=== PATIENT | female | born 1995 | race Two or more races ===

== ENCOUNTER → 2024-02-04 | Outpatient (CLI) | payer MEDICAID, SELFPAY ==
--- NOTE | 2024-02-04 08:30 | XR_ITS ---
Examination: Pelvic ultrasound, transabdominal, complete Technique: Transabdominal ultrasound of the pelvis performed using grayscale imaging Date and time of exam: February 04, 2024 0829 hours INDICATIONS: Vaginal bleeding beginning 6 months ago with pelvic cramping FINDINGS: Uterus 7.6 x 3.9 x 6.6 cm Hyperechoic area in the cervix 15 x 7 mm Right ovary 3.2 x 2.0 x 2.3 cm arterial flow Left ovary 5.1 x 4.0 x 4.5 cm arterial flow 26 x 31 x 30 mm cyst IMPRESSION: Recommend transvaginal pelvic sonography follow-up to further assess linear hyperechoic area in the cervix 15 x 7 mm
== END | disposition home or self-care (01) ==
LOC: CDIM 08:06
PROVIDERS: Referring Provider Nurse Practitioner Family; Visit Provider Nurse Practitioner Family
DX: N92.6 Irregular menstruation, unspecified (principal)
CPT/HCPCS: 76856

== ENCOUNTER → 2024-03-03 | Outpatient (CLI) | payer MEDICAID, SELFPAY ==
--- NOTE | 2024-03-03 15:30 | XR_ITS ---
Examination: Transvaginal ultrasound of the pelvis, complete Technique: Transvaginal sonographic images pelvis performed using sanchez scale imaging Exam date and time: March 03, 2024 1553 hours INDICATIONS: Pelvic pain one month vaginal bleeding 7 months, hyperechoic area in the cervix 15 x 7 mm on transabdominal pelvic sonogram February 04, 2024 FINDINGS: Uterus 10.4 x 4.9 x 7.1 cm retroverted No uterine or cervical mass Endometrial stripe 0.6 cm Right ovary 2.5 x 1.0 x 2.9 cm arterial flow small follicles Left ovary 4.0 x 3.0 x 3.6 cm arterial flow 32 x 26 x 32 mm cyst IMPRESSION: No uterine or cervical mass noted.
== END | disposition home or self-care (01) ==
PROVIDERS: PCP Internal Medicine; Referring Provider Internal Medicine; Visit Provider Internal Medicine
DX: N92.6 Irregular menstruation, unspecified (principal)
CPT/HCPCS: 76830

== ENCOUNTER 2025-01-05 02:44 | Inpatient (IN) | payer MEDICAID, SELFPAY ==
[2025-01-05] VITALS (84 sets, daily range): BP systolic 93–118; BP diastolic 51–73; PULSE 69–113; RESP 16–99; TEMP 36.6–37.2; O2SAT 87–100; BMI 29.1
[2025-01-05 04:28] LABS: Basophils # (Auto) 0.1 Thou/mm3 (0.0-0.2); Basophils % (Auto) 1 % (0-2.5); Eosinophils # (Auto) 0.0 Thou/mm3 (0.0-0.5); Eosinophils % (Auto) 0 % (0-10); Hematocrit 32.4 % (36.0-46.0); Hemoglobin 10.3 g/dL (12.0-16.0); Immature Granulocytes Auto 0.07 Thou/mm3 (0.00-0.00); Lymphocytes # (Auto) 2.6 Thou/mm3 (1.0-4.8); Lymphocytes % (Auto) 25 % (10-50); Mean Corpuscular HGB Conc 31.8 g/dl (31.0-37.0); Mean Corpuscular Hemoglobin 22.7 pg (25.0-35.0); Mean Corpuscular Volume 72 fL (80-100); Monocytes # (Auto) 0.9 Thou/mm3 (0.0-0.8); Monocytes % (Auto) 8 % (0-12); Neutrophils # (Auto) 6.9 Thou/mm3 (1.8-7.7); Neutrophils % (Auto) 66 % (37-80); Nucleated Red Blood Cell # 0.00 Thou/mm3 (0.00-0.00); Nucleated Red Blood Cell % 0 /100 WBC (0); Platelet Count 204 Thou/mm3 (140-440); RDW Standard Deviation 44.8 fL (36.4-46.3); Red Blood Count 4.53 Miln/mm3 (4.00-5.20); White Blood Count 10.6 Thou/mm3 (3.6-11.0)
[2025-01-05] MEDS: RINGERS LACTATED 1000 ML 1,000 ML 100 ML IV (04:39)
[2025-01-05 04:52] LABS: Amphetamine/Metham Scrn,Ur OB Negative (Negative); Benzoylecgonine Screen, Ur OB Negative (Negative); Opiate Screen,Urine OB Negative (Negative); THC Screen,Urine OB Negative (Negative)
[2025-01-05 05:00] LABS: Syphilis Nonreactive (Nonreactive)
--- NOTE | 2025-01-05 06:03 | PD.LDHP ---
Documentation for date of: 01/05/25 OB Labor/Induct. HPI History of Present Illness : 8 Para: 5 Term pregnancies: 5 pregnancies: 0 Living children: 5 History of Abortions: Spontaneous and Elective: 2 History of Vaginal deliveries: 5 History of sections: No History of : No Date of last menstrual period: 04/12/24 EFREN: 01/17/25 Gestational age based on last menstrual period: 38 History of present illness: H and P dictated on STAT line #9 in [facility] : [id number] History of Present Adequate Care: Yes Labs Labs: Negative: RPR and Group Beta Strep and Unknown: Covid-19 Past Medical History Surgical History SURGICAL: Negative Section Meds Home Medications and Allergies Home Medications ?Medication ?Instructions ?Recorded ?Confirmed ?Type vits no.130-ferrous fum 1 tab PO QDAY 11/17/20 08/07/22 History 27 mg iron-folic acid 800 mcg tablet ( Vitamin) ferrous sulfate 325 mg (65 mg 325 mg PO QDAY 08/07/22 08/07/22 History iron) tablet Allergies Allergy/AdvReac Type Severity Reaction Status Date / Time No Known Allergies Allergy Unverified 08/07/22 07:20 OB Exam Physical Exam Vital signs: Temp Pulse Resp BP 98.9 F 87 18 118/73 01/05/25 03:00 01/05/25 03:00 01/05/25 03:00 01/05/25 03:00 OB Results Labs 01/05/25 03:31 Labs: Short CBC 01/05/25 Range/Units 03:31 WBC 10.6 (3.6-11.0) Thou/mm3 Hgb 10.3 L (12.0-16.0) g/dL Hct 32.4 L (36.0-46.0) % Plt Count 204 (140-440) Thou/mm3
--- NOTE | 2025-01-05 06:35 | ESHP_ITS ---
RE: BING KWAN : 1995 DATE OF ADMISSION: 01/17/2025 HISTORY OF PRESENT ILLNESS: This is a 29-year-old 8, para 5-0-2-5 with due date of 01/17 with intrauterine at 38 weeks and 2 days who presents to labor and delivery complaining of contractions and leaking and is noted to be in early labor. She denies any bleeding. She reports normal movement. Her care was complicated by a suspected ventricular septal defect on an early ultrasound; however, followup with maternal medicine with multiple visits failed to confirm any VSD. MFM indicated on 11/24 that growth was at the 85th percentile, consistent with a projected size at term of 9 pounds. Her care was also complicated by iron deficiency anemia. She has been taking iron during her . MEDICATIONS: 1. multivitamin 1 p.o. daily. 2. Ferrous sulfate 325 mg 1 p.o. b.i.d. SOCIAL HISTORY: She denies any alcohol, drug use, or smoking. FAMILY HISTORY: Diabetes. OBSTETRIC HISTORY: Five previous full-term normal vaginal deliveries and two first-trimester spontaneous abortions at 6 weeks gestation without D and C. PAST SURGICAL HISTORY: Denies. REVIEW OF SYSTEMS: She denies any chest pain, palpitations, cough, fever, flank pain, shortness of breath, or lower extremity pain. She denies any headache, change of vision, or right upper quadrant pain. PHYSICAL EXAMINATION: VITAL SIGNS: Blood pressure is 122/70, heart rate 88, respirations 18, temperature 98.6. HEENT: Oropharynx and sclerae clear. LUNGS: Clear to auscultation bilaterally. HEART: Regular rate and rhythm. ABDOMEN: Gravid, consistent with an estimated weight of 8.5 pounds. PELVIC: See RN notes. EXTREMITIES: Nontender. SKIN: No gross rashes or lesions. NEUROLOGIC: No focal deficits. ASSESSMENT AND PLAN: Intrauterine at 38 weeks and 2 days. Labor. Anticipate spontaneous vaginal delivery. Informed consent was obtained. Patient has been made aware of the risks, complications, alternatives, and benefits of operative vaginal delivery and delivery and agrees with these modes of delivery if indicated. DT: 06:02:41 TT: 06:34:00 Ref: [id number] - TID: [id number]
[2025-01-05] MEDS: OXYTOCIN in NS 30 units 30 UNIT/500 ML BAG IV (09:00)
[2025-01-05] MEDS: MINERAL OIL 30 ML UDC TOP (14:16)
[2025-01-05] MEDS: OXYTOCIN in NS 20 units 20 UNIT/1,000 ML BAG 125 UNIT IV (14:16)
[2025-01-05] MEDS: BENZO/LANO/ALOE (Dermoplast) 60 GM CAN 1 SPRAY TOP (14:17)
[2025-01-05] MEDS: IBUPROFEN TAB 400 MG TABLET 800 MG PO (14:23)
[2025-01-05 21:13] LABS: Basophils # (Auto) 0.1 Thou/mm3 (0.0-0.2); Basophils % (Auto) 0 % (0-2.5); Eosinophils # (Auto) 0.0 Thou/mm3 (0.0-0.5); Eosinophils % (Auto) 0 % (0-10); Hematocrit 31.3 % (36.0-46.0); Hemoglobin 9.7 g/dL (12.0-16.0); Immature Granulocytes Auto 0.03 Thou/mm3 (0.00-0.00); Lymphocytes # (Auto) 1.9 Thou/mm3 (1.0-4.8); Lymphocytes % (Auto) 15 % (10-50); Mean Corpuscular HGB Conc 31.0 g/dl (31.0-37.0); Mean Corpuscular Hemoglobin 22.7 pg (25.0-35.0); Mean Corpuscular Volume 73 fL (80-100); Monocytes # (Auto) 0.8 Thou/mm3 (0.0-0.8); Monocytes % (Auto) 7 % (0-12); Neutrophils # (Auto) 9.4 Thou/mm3 (1.8-7.7); Neutrophils % (Auto) 78 % (37-80); Nucleated Red Blood Cell # 0.00 Thou/mm3 (0.00-0.00); Nucleated Red Blood Cell % 0 /100 WBC (0); Platelet Count 202 Thou/mm3 (140-440); RDW Standard Deviation 45.2 fL (36.4-46.3); Red Blood Count 4.28 Miln/mm3 (4.00-5.20); White Blood Count 12.1 Thou/mm3 (3.6-11.0)
[2025-01-06] VITALS: BP 106/68; RESP 18; TEMP 36.6; O2SAT 98
[2025-01-06 04:00] VITALS: BP 105/70; RESP 15; TEMP 36.3; O2SAT 99
[2025-01-06 07:20] VITALS: BP 100/65; PULSE 69; RESP 14; TEMP 36.6; O2SAT 100
--- NOTE | 2025-01-06 07:25 | ESPR_ITS ---
RE: DANIEL KWAN : 1995 DATE OF SERVICE: 01/06/2025 SUBJECTIVE: day #1, patient denies any problem or complaints. She is voiding. She is ambulating. She is tolerating a regular diet. She is passing flatus. She denies any excessive vaginal bleeding. She denies any dizziness or lightheadedness. She denies any chest pain, palpitation, shortness of breath, or lower extremity pain. OBJECTIVE: VITAL SIGNS: Blood pressure is 105/70, heart rate 88, respiration 15, temperature is 97.4, pulse ox is 99% on room air. LUNGS: Clear to auscultation bilaterally. HEART: Regular rate and rhythm. ABDOMEN: Nontender. Fundus is firm. EXTREMITIES: Nontender. Hemoglobin pre-delivery is 10.3, post delivery is 9.7. ASSESSMENT: day #1, status post spontaneous vaginal delivery. PLAN: Discharge home when baby is cleared. Discharge instructions given. Follow up in the office in 6 weeks. DT: 06:42:20 TT: 07:24:00 Ref: [id number] - TID: [id number]
--- NOTE | 2025-01-06 08:52 | OBDSUM_ITS ---
Data (Michael) Data Hx Section: No : 8 Term: 5 : 0 Livin Abortions: Spontaneous & Theraputic: 2 Delivery Data (Michael) Labor Data Initiation of labor: Augmentation Induction/Augmentation Agent: Pitocin ROM date: 01/05/25 ROM time: 02:00 Amniotic membrane rupture type: Spontaneous Amniotic fluid description: Clear Delivery Data EDC: 01/17/25 EDC calculated by:: LMP/early US confirmation Onset of labor date: 01/05/25 Onset of labor time: 12:27 Complete dilation date: 01/05/25 Complete dilation time: 13:45 [place] delivery date: 01/05/25 [place] delivery time: 13:53 Gestational age (weeks): 38 Gestational age (days): 2 Placenta delivery date: 01/05/25 Placenta delivery time: 13:57 Stage 1 total time: Labor - Stage 1 Duration 1 hours and 18 minutes Delivered by: DR LATIF Delivery nurse: Paula MCCARTHY RN [place] nurse: Juan R DE LA CRUZ RN Wire Steward at delivery: No Support person(s) at delivery: FOB Delivery Method Delivery method: Normal Vaginal Delivery Presentation: Vertex position: OA Anesthesia Type Anesthesia Type: None Placenta Placenta delivery description: Spontaneous Cord blood sent to lab: Yes cord blood collection: Cord Blood Type Episiotomy Episiotomy description: None EBL Estimated blood loss (ml): 150 Umbilical Cord cord description: 3 Vessels Additional Procedures None Complications Complications: None Data (Michael) [place] Data order: 1 [place]'s gender: Female Identification band number: [id number] weight (gms): 7 lb 8.813 oz Weight (pounds): 7 lbs and 8.8 ozs length: 19 in 1 minute: 8 5 minutes: 9
--- NOTE | 2025-01-06 09:33 | PD.LDDS ---
DS: Providers Provider Date of admission: 01/05/25 03:10 Primary care physician: Physician No Primary/Family Admitting Provider: Mitch Jerome MD Attending Provider on Admission: Mitch Jerome MD Consults: 01/05/25 14:41 Referral Routine Comment: Attending Provider on DC: Mitch Jerome MD Discharging Provider: Mitch Jerome MD DS: Diagnosis Problem List Completed Was Problem List Reviewed/Reconciled?: Yes Summary/Hosp Course Brief History: H and P dictated on STAT line #9 in [place] : [id number] Peripartum Data Delivery Method: Normal Vaginal Delivery Episiotomy Description: None Time Spent with Patient Time attestation: Total time spent providing and/or coordinating discharge services: Exam Vital Signs Temp Pulse Resp BP Pulse Ox O2 Del Method 97.9 F 69 14 100/65 100 Room Air 01/06/25 07:20 01/06/25 07:20 01/06/25 07:20 01/06/25 07:20 01/06/25 07:20 01/06/25 07:20 Discharge Plan Plan Patient Disposition: HOME (Self Care) Patient condition on transfer: Stable Prescriptions/Referrals Prescriptions/Med Rec: New ibuprofen 600 mg tablet 600 mg PO Q6H PRN (Reason: pain) Qty: 30 0RF Continued Vitamin 27 mg iron- 800 mcg tablet 1 tab PO QDAY Patient Comments: TAKE 1 TABLET BY MOUTH EVERY DAY Discontinued ferrous sulfate 325 mg (65 mg iron) Tablet 325 mg PO QDAY docusate sodium [Colace] 100 mg capsule 100 mg PO BID Qty: 60 0RF lanolin 50 % ointment 1 applic topical TID PRN (Reason: skin irritation) Qty: 15 0RF ibuprofen 600 mg tablet 600 mg PO Q6H PRN (Reason: pain) Qty: 90 0RF Referrals: No Primary/Family,Physician [Primary Care Provider] Patient/Caregiver Discharge Instructions Discharge Activity: activity as tolerated Other Discharge Activity Instructions:: Follow up office 6 weeks Print Language: [place] Stand Alone Forms: Diana Award Info., Patient Portal Info Letter Discharge Order Discharge Orders: Discharge (Routine); Ordered 01/06/25 Ordered By: Mitch Jerome Planned Discharge Date 01/06/25
[2025-01-06 11:17] LABS: Chlamydia trachomatis PCR Negative (Not Detect); Neisseria Gonorrhoeae DNA PCR Negative (Not Detect); Trichomonas Negative (Negative)
[2025-01-06 11:48] VITALS: BP 101/56; PULSE 87; RESP 16; TEMP 36.4; O2SAT 96
--- NOTE | 2025-01-06 16:04 | PC.SS ---
BUNCH BREAKER MACHINE OPERATOR conducted bedside contact with the patient to address nursing referral indicating patient was late to care BUNCH BREAKER MACHINE OPERATOR introduced self and role.? At bedside with patient was Jaime BLANKENSHIP.? Patient gave permission for FOB to be present during discussion.? BUNCH BREAKER MACHINE OPERATOR reviewed basis of referral.? Patient confirmed late to care.? Patient stated reason late to care was not knowing she was .? Upon confirmation of OB services provided by Dr. Jerome. ?Patient reports consistency with OB services.? Infant, Terri; is the patient?s sixth child.? Infant delivered via .? Patient is receiving WIC, SNAP and TANF.? Patient denies history of alcohol/drug abuse.? Patient denies CWS intervention.? Patient denies episodes of domestic violence.? Patient denies possessing a history of mental health, reports no current possession of depression or anxiety.? Patient plans on breast feeding the .? Patient has access to appropriate supplies and equipment; to include a car seat.? FOB will provide transportation upon discharge.? Patient describes possessing support system consisting of FOB and extended family.? BUNCH BREAKER MACHINE OPERATOR provided the patient with community resources to include [employer] and Warm Line.? No further intervention required at this time, social media content manager will be available to address any further concerns.? BUNCH BREAKER MACHINE OPERATOR updated bedside nurse.?
== END 2025-01-06 15:15 | disposition home or self-care (01) | DRG 560 ==
LOC: S4SX 14:05 → S4NX 16:24
PROVIDERS: Admitting Provider Specialist; Visit Provider Specialist
DX: O99.02 Anemia complicating childbirth (principal); D50.9 Iron deficiency anemia, unspecified; Z37.0 Single live birth; Z3A.38 38 weeks gestation of pregnancy
CPT/HCPCS: 36415; 59409; 80307; 84112; 85025; 86780; 86850; 86900; 86901; 87491; 87591; 87661; 94762; J2590; J7120; A9270